=== PATIENT | female | born 1980 | race African-American/Black ===

== ENCOUNTER 2019-01-20 02:46 | Emergency (ER) | payer SELFPAY ==
[2019-01-20] MEDS ORDERED: Ketorolac Tromethamine 60 MG/2 ML VIAL ONE (03:16)
[2019-01-20] MEDS ORDERED: Bicillin LA 1.2 MILLION UNITS/2 ML SYRINGE ONE (03:47)
[2019-01-20] MEDS ORDERED: Dexamethasone 4 MG TAB ONE (03:48)
== END 2019-01-20 04:12 | disposition home or self-care (01) ==
LOC: BURERS 02:46
DX: J02.0 Streptococcal pharyngitis (principal); E11.9 Type 2 diabetes mellitus without complications
CPT/HCPCS: 87430; 87804; 96372; J0561; J1885; J8540